=== PATIENT | male | born 1975 | race Caucasian/White ===

== ENCOUNTER 2017-04-14 12:16 | Outpatient (CLI) | payer OTHER ==
--- NOTE | 2017-04-14 12:50 | RAD ---
THREE VIEW RIGHT HAND: Clinical history: TRC. Comparison: None. FINDINGS: There is prominent articular joint space narrowing and marginal erosive change throughout the right h and involving IP and MCP joints. Cystic lucency seen at the carpals and distal radius. There is assoc iated subtle fracture deformity suggested at the scaphoid waste, age indeterminate and difficult to f urther discern on the basis of the provided views. IMPRESSION: 1. Evidence to indicate polyarticular arthropathy with marginal erosions. Findings favor rheumatoid a rthritis. Correlate clinically. 2. Suggestion of a possible pathologic fracture at the scaphoid waste superimposed upon a region of c ystic lucency, age indeterminate. Recommend dedicated CT of right wrist for further evaluation. Code T POS: LAKESHA
== END 2017-04-14 12:17 | disposition home or self-care (01) ==
LOC: RAD 12:16
PROVIDERS: ATTEND Internal Medicine
DX: Z02.71 Encounter for disability determination (principal); M06.9 Rheumatoid arthritis, unspecified; M13.0 Polyarthritis, unspecified